=== PATIENT | female | born 1975 | race Caucasian/White ===

== ENCOUNTER 2019-03-25 09:39 | Emergency (ER) | payer OTHER ==
[~2019-03-25] VITALS: Ht 160 cm; Wt 70.8 kg
[2019-03-25] MEDS ORDERED: SYNTHROID50 MCG (09:58)
== END 2019-03-25 10:33 | disposition home or self-care (01) ==
LOC: ER 09:39
DX: H10.13 Acute atopic conjunctivitis, bilateral (principal)

== ENCOUNTER 2019-04-09 08:57 | Outpatient (CLI) | payer OTHER ==
[~2019-04-09 08:57] MED LIST: SYNTHROID50 MCG
== END 2019-04-09 09:12 | disposition home or self-care (01) ==
LOC: MAMO-SONO 08:57
DX: Z12.31 Encounter for screening mammogram for malignant neoplasm of breast (principal); Z87.898 Personal history of other specified conditions; N63.10 Unspecified lump in the right breast, unspecified quadrant; N63.20 Unspecified lump in the left breast, unspecified quadrant; E04.2 Nontoxic multinodular goiter

== ENCOUNTER 2020-04-22 14:04 | Outpatient (CLI) | payer OTHER | END 2020-04-22 14:21 | disposition home or self-care (01) | LOC: MAMO-SONO 14:04 → EDBD 14:04 → MAMO-SONO 14:15 | PROVIDERS: ATTEND Obstetrics & Gynecology | DX: R92.2 Inconclusive mammogram (principal); N64.59 Other signs and symptoms in breast ==

== ENCOUNTER 2020-07-21 10:36 | Outpatient (CLI) | payer OTHER | END 2020-07-21 10:55 | disposition home or self-care (01) | LOC: RAD 10:36 | PROVIDERS: ATTEND Obstetrics & Gynecology | DX: G93.89 Other specified disorders of brain (principal); G93.2 Benign intracranial hypertension; N64.59 Other signs and symptoms in breast ==

== ENCOUNTER 2020-09-01 09:06 | Outpatient (CLI) | payer OTHER | END 2020-09-01 09:31 | disposition home or self-care (01) | LOC: SONOGRAMA 09:06 → MAMO-SONO 09:15 → SONOGRAMA 09:31 | PROVIDERS: ATTEND Obstetrics & Gynecology | DX: E04.8 Other specified nontoxic goiter (principal) ==

== ENCOUNTER 2020-10-24 08:41 | Outpatient (CLI) | payer OTHER | END 2020-10-24 08:55 | disposition home or self-care (01) | LOC: MRI 08:41 | PROVIDERS: ATTEND Obstetrics & Gynecology | DX: R93.0 Abnormal findings on diagnostic imaging of skull and head, not elsewhere classified (principal); R90.0 Intracranial space-occupying lesion found on diagnostic imaging of central nervous system | CPT/HCPCS: 70551 ==

== ENCOUNTER 2021-04-17 09:40 | Outpatient (CLI) | payer OTHER | END 2021-04-17 09:55 | disposition home or self-care (01) | LOC: SONOGRAMA 09:40 | PROVIDERS: ATTEND Internal Medicine | DX: N18.1 Chronic kidney disease, stage 1 (principal); N28.89 Other specified disorders of kidney and ureter ==

== ENCOUNTER 2021-12-30 08:32 | Outpatient (CLI) | payer OTHER | END 2021-12-30 08:42 | disposition home or self-care (01) | LOC: SONOGRAMA 08:32 | PROVIDERS: ATTEND Internal Medicine Endocrinology, Diabetes & Metabolism | DX: E04.2 Nontoxic multinodular goiter (principal); R59.0 Localized enlarged lymph nodes ==

== ENCOUNTER 2022-01-28 07:53 | Outpatient (CLI) | payer OTHER | END 2022-01-28 07:54 | disposition home or self-care (01) | LOC: LAB 07:53 | PROVIDERS: ATTEND Internal Medicine Hematology & Oncology | DX: D50.8 Other iron deficiency anemias (principal); R79.9 Abnormal finding of blood chemistry, unspecified; I10 Essential (primary) hypertension; R74.02 Elevation of levels of lactic acid dehydrogenase [LDH]; K76.89 Other specified diseases of liver; D51.8 Other vitamin B12 deficiency anemias; D51.1 Vitamin B12 deficiency anemia due to selective vitamin B12 malabsorption with proteinuria; D47.2 Monoclonal gammopathy; C90.00 Multiple myeloma not having achieved remission; C50.919 Malignant neoplasm of unspecified site of unspecified female breast; R97.8 Other abnormal tumor markers; E06.3 Autoimmune thyroiditis; E03.8 Other specified hypothyroidism; B96.81 Helicobacter pylori [H. pylori] as the cause of diseases classified elsewhere; K29.30 Chronic superficial gastritis without bleeding ==

== ENCOUNTER → 2022-07-13 08:14 | Outpatient (CLI) | payer OTHER | END | disposition home or self-care (01) | LOC: LAB 08:14 | PROVIDERS: ATTEND Internal Medicine Hematology & Oncology | DX: D50.8 Other iron deficiency anemias (principal); R79.9 Abnormal finding of blood chemistry, unspecified; I10 Essential (primary) hypertension; R74.02 Elevation of levels of lactic acid dehydrogenase [LDH]; K76.89 Other specified diseases of liver; D51.8 Other vitamin B12 deficiency anemias; D47.2 Monoclonal gammopathy; C90.00 Multiple myeloma not having achieved remission; E55.9 Vitamin D deficiency, unspecified; E06.3 Autoimmune thyroiditis; E03.8 Other specified hypothyroidism; B96.81 Helicobacter pylori [H. pylori] as the cause of diseases classified elsewhere; M32.9 Systemic lupus erythematosus, unspecified; M06.9 Rheumatoid arthritis, unspecified; M35.89 Other specified systemic involvement of connective tissue; M35.00 Sjogren syndrome, unspecified; K74.3 Primary biliary cirrhosis; M34.81 Systemic sclerosis with lung involvement; M33.20 Polymyositis, organ involvement unspecified; M05.9 Rheumatoid arthritis with rheumatoid factor, unspecified; K29.30 Chronic superficial gastritis without bleeding; N18.1 Chronic kidney disease, stage 1; R80.9 Proteinuria, unspecified; D64.9 Anemia, unspecified; E78.2 Mixed hyperlipidemia; M81.0 Age-related osteoporosis without current pathological fracture; M85.89 Other specified disorders of bone density and structure, multiple sites; E11.65 Type 2 diabetes mellitus with hyperglycemia; N39.0 Urinary tract infection, site not specified; D64.89 Other specified anemias; R94.5 Abnormal results of liver function studies; E83.51 Hypocalcemia; E83.52 Hypercalcemia ==

== ENCOUNTER 2022-07-22 10:46 | Outpatient (CLI) | payer OTHER | END 2022-07-22 11:10 | disposition home or self-care (01) | LOC: SONOGRAMA 10:46 | PROVIDERS: ATTEND Internal Medicine Endocrinology, Diabetes & Metabolism | DX: E42 Marasmic kwashiorkor (principal); R59.0 Localized enlarged lymph nodes ==

== ENCOUNTER 2023-01-05 08:03 | Outpatient (CLI) | payer OTHER | END 2023-01-05 08:13 | disposition home or self-care (01) | LOC: LAB 08:03 | PROVIDERS: ATTEND Internal Medicine Hematology & Oncology | DX: D50.8 Other iron deficiency anemias (principal); R79.9 Abnormal finding of blood chemistry, unspecified; R74.02 Elevation of levels of lactic acid dehydrogenase [LDH]; K76.89 Other specified diseases of liver; D47.2 Monoclonal gammopathy; C90.00 Multiple myeloma not having achieved remission; E06.3 Autoimmune thyroiditis; E03.8 Other specified hypothyroidism; B96.81 Helicobacter pylori [H. pylori] as the cause of diseases classified elsewhere; N18.1 Chronic kidney disease, stage 1; R80.9 Proteinuria, unspecified; C78.5 Secondary malignant neoplasm of large intestine and rectum; D64.89 Other specified anemias; R94.5 Abnormal results of liver function studies ==

== ENCOUNTER 2023-01-13 08:02 | Outpatient (CLI) | payer OTHER | END 2023-01-13 08:15 | disposition home or self-care (01) | LOC: SONOGRAMA 08:02 | PROVIDERS: ATTEND Internal Medicine Endocrinology, Diabetes & Metabolism | DX: E04.2 Nontoxic multinodular goiter (principal); R59.0 Localized enlarged lymph nodes ==

== ENCOUNTER → 2023-08-02 07:59 | Outpatient (CLI) | payer OTHER ==
[2023-08-02 09:34] LABS: URINE APPEARANCE Clear; URINE BILIRRUBIN Negative (NEGATIVE); URINE BLOOD Moderate; URINE COLOR Yellow; URINE GLUCOSE Negative (NEGATIVE); URINE LEUKOCYTE Negative; URINE NITRATE Negative; URINE PROTEIN Negative (NEGATIVE); URINE UROBILINOGEN 0.2 E.U./dl
[2023-08-02 09:35] LABS: URINE BACTERIA 88.1 uL (0.0-1933); URINE EPITHELIAL CELLS 3.5 uL (0.0-38.8); URINE RBC 122.7 uL (0.0-20.8)
[2023-08-02 09:39] LABS: URINE WBC 1.5 uL (0.0-23.2)
[2023-08-02 10:09] LABS: HEMATOCRIT 35.3 % (36.0-45.00); HEMOGLOBIN 12.1 g/dL (12.0-15.00); MEAN CORPUSCULAR HEMOGLOBIN 30.6 pg (27.00-32.0); MEAN CORPUSCULAR HGB CONC 34.3 g/dl (32.0-36.0); PLATELET COUNT 199 K/uL (150-450); RED BLOOD COUNT 3.96 M/uL (4.00-6.00)
[2023-08-02 10:27] LABS: % SATURACION 28.6 % (15-50); ALBUMIN 3.5 gm/dL (3.4-5.0); BILIRUBIN TOTAL 0.49 mg/dL (0.3-1.2); CALCIUM 8.6 mg/dL (8.5-10.1); CREATININE SERUM 0.61 mg/dL (0.55-1.02); FERRITIN 46.1 NG/ML (8-252); GFR 105.59; GLOBULINA 3.2 G/DL (2.4-3.5); PHOSPHOROUS 2.8 mg/dL (2.5-4.9); POTASSIUM 4.11 mEq/L (3.5-5.1); T4 FREE 1.35 NG/ML (0.76-1.46); TOTAL PROTEIN 6.7 gm/dL (6.4-8.2); TSH 1.36 uIU/mL (0.358-3.74)
[2023-08-02 12:36] LABS: FOLIC ACID 13.75 ng/ml (4.78-20); VITAMIN D3 25 HYDROXY 60.72 ng/ml (30-120)
[2023-08-02 14:25] LABS: CREATININE URINE RANDOM 70.8 MG/DL (30-125)
[2023-08-02 20:04] LABS: URIC ACID 4.9 mg/dL (2.5-7.5)
[2023-08-04 15:11] LABS: kappa lambda r 4.42 (0.26-1.65); kappa light 69.4 mg/L (3.3-19.4); lambda light 15.7 mg/L (5.7-26.3)
[2023-08-05 16:50] LABS: MANUAL PLATELET COUNT 500
[2023-08-05 16:52] LABS: PLATELET ESTIMATE INCREASED (NORMAL)
[2023-08-05 17:07] LABS: BETA-2-MICROGLOBULINA 1.3 mg/L (0.6-2.4)
[2023-08-06 15:10] LABS: a:g ratio 1.4 (0.7-1.7); alpha 1 g 0.2 g/dL (0.0-0.4); alpha 2 0.6 g/dL (0.4-1.0); gamma g 1.1 g/dL (0.4-1.8); globulin t 2.8 g/dL (2.2-3.9); m spike 0.4 g/dL (Not Observed); prot 27.6 mg/dL (Not Estab.); prot total 6.7 g/dL (6.0-8.5)
== END | disposition home or self-care (01) ==
LOC: LAB 07:59
PROVIDERS: ATTEND Internal Medicine Hematology & Oncology
DX: D50.8 Other iron deficiency anemias (principal); R79.9 Abnormal finding of blood chemistry, unspecified; I10 Essential (primary) hypertension; R74.02 Elevation of levels of lactic acid dehydrogenase [LDH]; K76.89 Other specified diseases of liver; D47.2 Monoclonal gammopathy; C90.00 Multiple myeloma not having achieved remission; E06.3 Autoimmune thyroiditis; B96.81 Helicobacter pylori [H. pylori] as the cause of diseases classified elsewhere; D03.8 Melanoma in situ of other sites; N18.2 Chronic kidney disease, stage 2 (mild); R80.9 Proteinuria, unspecified; D64.9 Anemia, unspecified; R73.01 Impaired fasting glucose; E78.2 Mixed hyperlipidemia; E55.9 Vitamin D deficiency, unspecified; M81.0 Age-related osteoporosis without current pathological fracture; M85.89 Other specified disorders of bone density and structure, multiple sites

== ENCOUNTER 2023-08-22 09:35 | Outpatient (CLI) | payer OTHER | END 2023-08-22 09:37 | disposition home or self-care (01) | LOC: MAMO-SONO 09:35 | PROVIDERS: ATTEND Student in an Organized Health Care Education/Training Program | DX: N60.11 Diffuse cystic mastopathy of right breast (principal); N60.12 Diffuse cystic mastopathy of left breast; Z12.31 Encounter for screening mammogram for malignant neoplasm of breast ==

== ENCOUNTER 2024-01-20 07:56 | Outpatient (CLI) | payer OTHER ==
[2024-01-20 08:59] LABS: HEMATOCRIT 34.3 % (36.0-45.00); HEMOGLOBIN 11.9 g/dL (12.0-15.00); MEAN CELL VOLUME 88.6 fL (80.00-100.00); MEAN CORPUSCULAR HEMOGLOBIN 30.7 pg (27.00-32.0); MEAN CORPUSCULAR HGB CONC 34.7 g/dl (32.0-36.0); PLATELET COUNT 197 K/uL (150-450); RED BLOOD COUNT 3.87 M/uL (4.00-6.00); RED CELL DISTRIBUTION WIDTH 14.2 % (11.5-14.5)
[2024-01-20 09:43] LABS: CALCIUM 9.1 mg/dL (8.5-10.1); CHOL HDL RATIO 5.1 (0-5.0); CREATININE SERUM 0.63 mg/dL (0.55-1.02); GFR 101.73; POTASSIUM 3.88 mEq/L (3.5-5.1); T4 FREE 1.15 NG/ML (0.76-1.46); TSH 1.73 uIU/mL (0.358-3.74)
[2024-01-21 09:07] LABS: ACTH 21.6 pg/mL (7.2-63.3); ESTRADIOL SERUM 59.8 pg/mL (.); FOLLICLE STIMULATING HORMONE 9.7 mIU/mL (.); TESTOSTERONE,TOTAL < 3.00 ng/dL (4-50)
== END 2024-01-20 08:09 | disposition home or self-care (01) ==
LOC: LAB 07:56
PROVIDERS: ATTEND Internal Medicine Endocrinology, Diabetes & Metabolism
DX: R73.01 Impaired fasting glucose (principal); E78.2 Mixed hyperlipidemia; D35.2 Benign neoplasm of pituitary gland; D64.9 Anemia, unspecified; N95.2 Postmenopausal atrophic vaginitis; E24.2 Drug-induced Cushing's syndrome

== ENCOUNTER → 2024-07-11 08:13 | Outpatient (CLI) | payer OTHER ==
[2024-07-11 09:40] LABS: PH,URINE 5.5 (5.0-8.0); URINE APPEARANCE Clear; URINE BILIRRUBIN Negative (NEGATIVE); URINE BLOOD Large; URINE COLOR Yellow; URINE GLUCOSE Negative (NEGATIVE); URINE KETONE Negative (NEGATIVE); URINE LEUKOCYTE Negative; URINE NITRATE Negative; URINE UROBILINOGEN 0.2 E.U./dl
[2024-07-11 09:41] LABS: HEMATOCRIT 34.5 % (36.0-45.00); HEMOGLOBIN 12.1 g/dL (12.0-15.00); MEAN CELL VOLUME 88.6 fL (80.00-100.00); MEAN CORPUSCULAR HEMOGLOBIN 31.2 pg (27.00-32.0); MEAN CORPUSCULAR HGB CONC 35.2 g/dl (32.0-36.0); PLATELET COUNT 233 K/uL (150-450); RED BLOOD COUNT 3.89 M/uL (4.00-6.00); RED CELL DISTRIBUTION WIDTH 13.1 % (11.5-14.5)
[2024-07-11 09:44] LABS: URINE EPITHELIAL CELLS 14.5 uL (0.0-38.8); URINE RBC 102.9 uL (0.0-20.8); URINE WBC 4.4 uL (0.0-23.2)
[2024-07-11 09:58] LABS: URINE CAST 0.29 uL (0.0-1.40); URINE PROTEIN 100 (NEGATIVE)
[2024-07-11 10:26] LABS: % SATURACION 26.6 % (15-50); ALBUMIN 3.5 gm/dL (3.4-5.0); BILIRUBIN TOTAL 0.39 mg/dL (0.3-1.2); CALCIUM 8.7 mg/dL (8.5-10.1); CHOL HDL RATIO 5.5 (0-5.0); CREATININE SERUM 0.6 mg/dL (0.55-1.02); FERRITIN 27.1 NG/ML (8-252); GFR 107.16; GLOBULINA 3.2 G/DL (2.4-3.5); PHOSPHOROUS 2.8 mg/dL (2.5-4.9); POTASSIUM 4.03 mEq/L (3.5-5.1); TOTAL PROTEIN 6.7 gm/dL (6.4-8.2); URIC ACID 4.6 mg/dL (2.5-7.5)
[2024-07-11 11:13] LABS: FOLIC ACID 18.25 ng/ml (4.78-20); VITAMIN D3 25 HYDROXY 44.37 ng/ml (30-120)
[2024-07-11 13:23] LABS: MANUAL PLATELET COUNT 306
[2024-07-11 13:24] LABS: PLATELET ESTIMATE NORMAL (NORMAL)
[2024-07-12 10:05] LABS: TRANSFERIN 256 mg/dL (192-364)
[2024-07-12 16:09] LABS: kappa lambda r 3.09 (0.26-1.65); kappa light 49.5 mg/L (3.3-19.4)
[2024-07-13 12:09] LABS: IMM A 240 mg/dL (87-352); IMM G 1136 mg/dL (586-1602); IMM M 79 mg/dL (26-217); a:g ratio 1.4 (0.7-1.7); alpha 1 g 0.2 g/dL (0.0-0.4); alpha 2 0.5 g/dL (0.4-1.0); gamma g 0.9 g/dL (0.4-1.8); globulin t 2.7 g/dL (2.2-3.9); m spike 0.4 g/dL (Not Observed); prot total 6.4 g/dL (6.0-8.5)
[2024-07-13 18:05] LABS: INTRINSIC FACTOR BLOCKING AB 0.9 AU/mL (0.0-1.1); albu 76.8 % (.); alp 3.3 % (.); beta 10.8 % (.); gam 5.1 % (.); m spi 0 % (Not Observed); prot 22.3 mg/dL (Not Estab.)
== END | disposition home or self-care (01) ==
LOC: LAB 08:13
PROVIDERS: ATTEND Internal Medicine Hematology & Oncology
DX: D47.2 Monoclonal gammopathy (principal); E06.3 Autoimmune thyroiditis; E03.8 Other specified hypothyroidism; B96.81 Helicobacter pylori [H. pylori] as the cause of diseases classified elsewhere; D50.8 Other iron deficiency anemias; R79.9 Abnormal finding of blood chemistry, unspecified; I10 Essential (primary) hypertension; R74.02 Elevation of levels of lactic acid dehydrogenase [LDH]; K76.89 Other specified diseases of liver; D51.0 Vitamin B12 deficiency anemia due to intrinsic factor deficiency; C90.00 Multiple myeloma not having achieved remission; Z12.11 Encounter for screening for malignant neoplasm of colon; D64.9 Anemia, unspecified; N95.1 Menopausal and female climacteric states; D51.9 Vitamin B12 deficiency anemia, unspecified; N30.00 Acute cystitis without hematuria; E83.51 Hypocalcemia; A64 Unspecified sexually transmitted disease; N39.0 Urinary tract infection, site not specified; R97.8 Other abnormal tumor markers; R79.89 Other specified abnormal findings of blood chemistry; E55.9 Vitamin D deficiency, unspecified; A60.9 Anogenital herpesviral infection, unspecified; N18.1 Chronic kidney disease, stage 1; R80.9 Proteinuria, unspecified

== ENCOUNTER 2024-08-22 08:12 | Outpatient (CLI) | payer OTHER | END 2024-08-22 08:25 | disposition home or self-care (01) | LOC: MAMO-SONO 08:12 | PROVIDERS: ATTEND Student in an Organized Health Care Education/Training Program | DX: N60.11 Diffuse cystic mastopathy of right breast (principal); N60.12 Diffuse cystic mastopathy of left breast ==

== ENCOUNTER 2024-08-29 10:31 | Outpatient (CLI) | payer OTHER ==
[2024-08-29 12:29] LABS: MAGNESIUM 1.8 mg/dL (1.8-2.4)
[2024-08-29 12:32] LABS: HEMATOCRIT 36.1 % (36.0-45.00); HEMOGLOBIN 12.4 g/dL (12.0-15.00); MEAN CELL VOLUME 88.5 fL (80.00-100.00); MEAN CORPUSCULAR HEMOGLOBIN 30.4 pg (27.00-32.0); MEAN CORPUSCULAR HGB CONC 34.4 g/dl (32.0-36.0); PLATELET COUNT 192 K/uL (150-450); RED BLOOD COUNT 4.07 M/uL (4.00-6.00)
[2024-08-29 12:51] LABS: T4 FREE 1.16 NG/ML (0.76-1.46); TSH 3.01 uIU/mL (0.358-3.74)
[2024-08-31 09:06] LABS: ESTRADIOL SERUM 43.8 pg/mL (.); FOLLICLE STIMULATING HORMONE 9.5 mIU/mL (.)
[2024-09-01 17:06] LABS: T T 4 ng/dL (4-50); test free < 0.2 pg/mL (0.0-4.2)
== END 2024-08-29 10:32 | disposition home or self-care (01) ==
LOC: LAB 10:31
PROVIDERS: ATTEND Internal Medicine Endocrinology, Diabetes & Metabolism
DX: E03.8 Other specified hypothyroidism (principal); E55.9 Vitamin D deficiency, unspecified; D64.9 Anemia, unspecified; D35.2 Benign neoplasm of pituitary gland; E28.2 Polycystic ovarian syndrome; E22.1 Hyperprolactinemia; E83.52 Hypercalcemia

== ENCOUNTER 2025-01-29 15:49 | Outpatient (CLI) | payer OTHER | END 2025-01-29 15:59 | disposition home or self-care (01) | LOC: RAD 15:49 | DX: J20.9 Acute bronchitis, unspecified (principal); J01.90 Acute sinusitis, unspecified ==

== ENCOUNTER 2025-03-01 14:53 | Outpatient (CLI) | payer OTHER | END 2025-03-01 15:01 | disposition home or self-care (01) | LOC: SONOGRAMA 14:53 | PROVIDERS: ATTEND Internal Medicine Endocrinology, Diabetes & Metabolism | DX: E04.2 Nontoxic multinodular goiter (principal); R59.0 Localized enlarged lymph nodes ==

== ENCOUNTER 2025-03-08 08:06 | Outpatient (CLI) | payer OTHER ==
[2025-03-08 09:41] LABS: ALT/SGPT 27.0 U/L (12-78); AST/SGOT 14.0 U/L (15-37); BILIRUBIN TOTAL 0.32 mg/dL (0.3-1.2); BUN CREA RATIO 31.0 (7.0-25.0); CHOL HDL RATIO 6.1 (0-5.0); CREATININE SERUM 0.59 mg/dL (0.55-1.02); GFR 109.25; GLOBULINA 3.0 G/DL (2.4-3.5); GLUCOSE FASTING 93.0 mg/dL (65-100); HDL 39.0 mg/dl (40-60); LDL 174.0 mg/dl (0-130); OSMOLALITY SERUM 285.0 MOSM/KG (275-295); T4 FREE 1.16 NG/ML (0.76-1.46); TSH 2.72 uIU/mL (0.358-3.74); VLDL 23.0 (0-39)
== END 2025-03-08 08:30 | disposition home or self-care (01) ==
LOC: LAB 08:06
PROVIDERS: ATTEND Internal Medicine Endocrinology, Diabetes & Metabolism
DX: E03.8 Other specified hypothyroidism (principal); E78.2 Mixed hyperlipidemia; E55.9 Vitamin D deficiency, unspecified; R94.5 Abnormal results of liver function studies; E11.65 Type 2 diabetes mellitus with hyperglycemia; E83.51 Hypocalcemia; E83.52 Hypercalcemia